=== PATIENT | male | born 1960 | race Two or more races ===

== ENCOUNTER → 2025-01-12 | Day surgery (SDC) | payer OTHER, MEDICAID ==
[2025-01-07 11:32] LABS: Urine Protein, UAD Negative (Negative)
[2025-01-07 11:37] LABS: Hematocrit 41.1 % (41.0-53.0); Hemoglobin 14.2 g/dL (13.5-17.5); Mean Corpuscular Hemoglobin 31.6 pg (28.0-32.0); Mean Corpuscular Volume 91.4 fL (80.0-100.0); Nucleated Red Blood Cells % 0.1 %
[2025-01-07 11:48] LABS: INR 1.0 (0.9-1.15); Partial Thromboplastin Time 29.1 SEC (24.5-34.5); Prothrombin Time 10.6 sec (9.3-11.8)
[2025-01-07 11:53] LABS: Alanine Aminotransferase 11 U/L (7-40); Albumin 4.6 g/dL (3.2-4.8); Alkaline Phosphatase 42 U/L (46-116); Anion Gap 5 (5-15); BUN/Creatinine Ratio 16.1 (10.0-20.0); Bilirubin, Total 0.3 mg/dL (0.2-1.0); Blood Urea Nitrogen 19 mg/dL (9-23); Calcium 9.2 mg/dL (8.7-10.4); Carbon Dioxide 23 mmol/L (20-31); Chloride 113 mmol/L (98-107); Glucose 92 mg/dL (74-106); Potassium 4.1 mmol/L (3.5-5.1); Sodium 141 mmol/L (136-145); Total Protein 6.6 g/dL (5.7-8.2)
[~2025-01-12] VITALS: Ht 172.7 cm; Wt 98.4 kg
[~2025-01-12] MED LIST: HYDROmorphone HCL 2 MG/ML VL/or syr IV PRN; MIDAZOLAM HCL 2MG/2ML 2ml VIAL (1mg/ml) IV PRN; MORPHINE SULFATE 4 MG/ML SYR/VIAL IV PRN; ONDANSETRON HCL 4 MG/2 ML VIAL IV ONE; ceFAZolin 2 GM/D5W50ml 50 ML IV ONE; hydrALAZINE HCL 20 MG/ML VL IV PRN
[2025-01-12] MEDS: BUPIVACAINE 0.25% INJ 50ML VIAL ONE (07:35)
[2025-01-12 07:55] VITALS: PULSE 73; RESP 17; O2SAT 98
[2025-01-12 08:05] VITALS: PULSE 71; RESP 18; O2SAT 98
[2025-01-12 08:31] VITALS: BP 134/81; PULSE 65; RESP 17; O2SAT 95
--- NOTE | 2025-01-13 13:03 | DVHOP2 ---
Operative Report - 2 Report Details Date: 01/12/25 Preop Diagnosis: Right wrist recurrent ganglion cyst Postop Diagnosis: Right wrist recurrent ganglion cyst Surgeon: Chandra Pinedo MD Relief Pharmacist: Julian PAUL Anesthesiologist: HAILEY Anesthesia: Local Consent: The patient was informed of the risks and benefits of the procedure. These include but are not limited to complications of anesthesia, postoperative infection, incomplete relief of symptoms, recurrence of symptoms, damage to blood vessels, nerves and tendons, deep venous thrombosis, pulmonary embolism and possible need for repeat surgery in the future. Name of Procedure Performed Right wrist ganglion excision Procedure Details Procedure Details: After informed consent, the patient was brought to the operating room and placed supine. After appropriate anesthesia was administered, the upper extremity was prepped and draped in sterile fashion. A tourniquet was applied to the upper arm and inflated to [__] mmHg after exsanguination (if used). A longitudinal or transverse incision was made directly over the palpable mass on the volar aspect of the [left/right] hand. Dissection was carried carefully through the subcutaneous tissue, taking care to identify and protect the palmar cutaneous branch of the median nerve and adjacent neurovascular structures. The ganglion cyst was identified arising from the [flexor tendon sheath / rad iocarpal joint capsule specify]. It was dissected circumferentially with sharp and blunt technique. The cyst was traced to its stalk and origin, which was ligated and excised en bloc to reduce the risk of recurrence. The wound was irrigated thoroughly with saline. Hemostasis was achieved. The skin was closed with interrupted 4-0 nylon sutures. A sterile compressive dressing was applied, and the hand was placed in a protective splint. The patient tolerated the procedure well and was transferred to recovery in stable condition. Disposition Home CHANDRA PINEDO MD Jan 13, 2025 13:03
== END | disposition home or self-care (01) ==
LOC: SUR 06:06
PROVIDERS: ATTEND Orthopaedic Surgery Adult Reconstructive Orthopaedic Surgery
DX: M67.431 Ganglion, right wrist (principal); F17.210 Nicotine dependence, cigarettes, uncomplicated; E66.01 Morbid (severe) obesity due to excess calories; I10 Essential (primary) hypertension; I25.2 Old myocardial infarction; I25.10 Atherosclerotic heart disease of native coronary artery without angina pectoris; E78.5 Hyperlipidemia, unspecified; Z68.32 Body mass index [BMI] 32.0-32.9, adult; Z88.0 Allergy status to penicillin; Z88.5 Allergy status to narcotic agent; Z90.49 Acquired absence of other specified parts of digestive tract; Z90.89 Acquired absence of other organs; Z98.890 Other specified postprocedural states; Z95.5 Presence of coronary angioplasty implant and graft; Z79.01 Long term (current) use of anticoagulants
CPT/HCPCS: 25112; 36415; 80053; 81001; 85025; 85610; 85730; 88305; J0690; J3490